=== PATIENT | female | born 1945 | race African-American/Black ===

== ENCOUNTER 2020-09-13 10:59 | Inpatient (IN) | payer OTHER ==
[2020-09-13 11:07] VITALS: BMI 25.8
[2020-09-13 12:06] LABS: BASO % 0.3 % (0-2.0); EOS % 0.9 % (0-4.5); HEMATOCRIT 32.1 % (32.4-45.2); HEMOGLOBIN 10.5 GM/dL (10.7-15.3); LYMPH % 24.5 % (8-40); MCH 31.4 pg (25.7-33.7); MCHC 32.8 g/dl (32.0-36.0); MEAN CELL VOLUME 95.6 fl (80-96); MONO % 6.6 % (3.8-10.2); NEUT % 67.7 % (42.8-82.8); PLATELET COUNT 172 K/MM3 (134-434); RBC 3.35 M/mm3 (3.60-5.2); RDW 16.3 % (11.6-15.6); WHITE BLOOD COUNT 5.5 K/mm3 (4.0-10.0)
[2020-09-13 12:11] LABS: INR 1.03 (0.83-1.09); PROTHROMBIN TIME (PATIENT) 12.4 SEC (9.7-13.0)
[2020-09-13 12:14] LABS: ACTIVATED PTT 34.5 SECONDS (25.2-36.5)
[2020-09-13 12:33] LABS: POTASSIUM 3.9 mmol/L (3.5-5.1)
[2020-09-13 12:35] LABS: CALCIUM 8.3 mg/dL (8.5-10.1)
[2020-09-13 12:36] LABS: ALBUMIN 2.9 g/dl (3.4-5.0); BLOOD UREA NITROGEN 25.1 mg/dL (7-18)
[2020-09-13 12:39] LABS: CREATININE 1.5 mg/dL (0.55-1.3)
[2020-09-13 12:40] LABS: BILIRUBIN,TOTAL 0.2 mg/dL (0.2-1); TOT PROT 5.9 g/dl (6.4-8.2)
[2020-09-13] MEDS: SODIUM CHLORIDE 1,000 ML IV SCH ×2 (12:43→22:54)
[2020-09-13] MEDS ORDERED: ASPIRIN 81 MG CHEWABLE TABLETS PO ONE (13:13)
[2020-09-13] MEDS ORDERED: ASPIRIN 81 MG CHEWABLE TABLETS ONE (14:29)
[2020-09-13 15:29] LABS: URINE APPEARANCE Clear; URINE BILIRUBIN 1+ (NEGATIVE); URINE COLOR Yellow; URINE GLUCOSE (UA) Negative (NEGATIVE); URINE KETONE Trace (NEGATIVE); URINE LEUK ESTERASE 1+ (NEGATIVE); URINE NITRITE Negative (NEGATIVE); URINE PROTEIN 2+ (NEGATIVE); URINE UROBILINOGEN 0.2 mg/dL (0.2-1.0)
[2020-09-13 15:50] LABS: EPI CELLS 50.6 /uL (0-25.1); HYALINE CASTS 16.69 /uL (0-3.1); URINE BACTERIA 91.7 /uL (0-1359); URINE RBC 64.6 /uL (0-23.9); URINE WBC 404.9 /uL (0-25.8)
[2020-09-13 15:51] LABS: URINE CRYSTALS FEW /hpf; YEAST NONE SEEN (NEGATIVE)
[2020-09-13] MEDS: INSULIN SLIDING SCALE (NOVOLOG) 1 VIAL SQ SCH ×2 (18:58→22:47)
[2020-09-13] MEDS ORDERED: DEXTROSE 50%-WATER - 25 GM/50 ML VIAL IVPUSH PRN (22:49)
[2020-09-13] MEDS ORDERED: DEXTROSE 50%-WATER 25 GM/50 ML DISP.SYRIN ONE (22:53)
[2020-09-13] MEDS: ROSUVASTATIN CA 20 MG TABLET (FP) PO SCH (22:55)
[2020-09-14] MEDS ORDERED: HEPARIN NA (PORCINE) 5,000 UNITS/ML 1ML VIAL SQ SCH (06:00)
[2020-09-14] MEDS ORDERED: DEXTROSE 50%-WATER - 25 GM/50 ML VIAL IVPUSH PRN (06:21)
[2020-09-14] MEDS ORDERED: DEXTROSE 50%-WATER 25 GM/50 ML DISP.SYRIN ONE (06:38)
[2020-09-14] MEDS: INSULIN SLIDING SCALE (NOVOLOG) 1 VIAL SQ SCH ×4 (06:40→22:01)
[2020-09-14] MEDS: LEVOTHYROXINE NA 50 MCG TABLET (FP) PO SCH (06:40)
[2020-09-14 08:22] LABS: BASO % 0.2 % (0-2.0); EOS % 0.4 % (0-4.5); HEMATOCRIT 33.6 % (32.4-45.2); HEMOGLOBIN 11.2 GM/dL (10.7-15.3); LYMPH % 24.6 % (8-40); MCH 31.8 pg (25.7-33.7); MCHC 33.3 g/dl (32.0-36.0); MEAN CELL VOLUME 95.3 fl (80-96); MEAN PLT VOLUME 9.5 fl (7.5-11.1); MONO % 6.8 % (3.8-10.2); PLATELET COUNT 172 K/MM3 (134-434); RBC 3.53 M/mm3 (3.60-5.2); RDW 16.1 % (11.6-15.6); WHITE BLOOD COUNT 6.5 K/mm3 (4.0-10.0)
[2020-09-14 08:37] LABS: POTASSIUM 3.6 mmol/L (3.5-5.1)
[2020-09-14 08:39] LABS: CHOLESTEROL 75 mg/dL (50-200); TRIGLYCERIDES 96 mg/dL (0-150)
[2020-09-14 08:40] LABS: LDL CHOLESTEROL (ONLY SJRH) 24 mg/dL (5-100)
[2020-09-14 08:41] LABS: CALCIUM 8.9 mg/dL (8.5-10.1)
[2020-09-14 08:42] LABS: ALBUMIN 3.1 g/dl (3.4-5.0); HDL CHOLESTEROL 47 mg/dL (40-60)
[2020-09-14 08:43] LABS: BLOOD UREA NITROGEN 19.7 mg/dL (7-18)
[2020-09-14 08:44] LABS: CREATININE 1.2 mg/dL (0.55-1.3)
[2020-09-14 08:45] LABS: PHOSPHOROUS 3.4 mg/dL (2.5-4.9)
[2020-09-14 08:46] LABS: BILIRUBIN,TOTAL 0.4 mg/dL (0.2-1); TOT PROT 5.9 g/dl (6.4-8.2)
[2020-09-14] MEDS ORDERED: PT OWN MED DRAWER 7, Y5N ONE ×2 (09:02→09:48)
[2020-09-14] MEDS: predniSONE 5 MG TABLET (UD) PO SCH (09:46)
[2020-09-14] MEDS: ASCORBIC ACID 500 MG TABLET (FP) PO SCH ×2 (09:46→22:02)
[2020-09-14] MEDS: ENOXAPARIN NA (PORCINE) 40 MG/0.4 ML DISP.SYRIN SQ SCH (09:46)
[2020-09-14] MEDS: ASPIRIN COATED 81 MG TABLET.EC PO SCH (09:46)
[2020-09-14] MEDS: ZINC SULFATE 220 MG TABLET PO SCH (09:47)
[2020-09-14] MEDS: CHOLECALCIFEROL (VIT D3) 1,000 UNIT (25 MCG) TABLET PO SCH (09:47)
[2020-09-14] MEDS ORDERED: AMBRISENTAN 10 MG PO SCH (10:00)
[2020-09-14] MEDS ORDERED: ACETAMINOPHEN 325 MG TABLET (FP) PO PRN (11:14)
[2020-09-14] MEDS: azaTHIOprine 50 MG TABLET PO SCH (11:32)
[2020-09-14] MEDS: SODIUM CHLORIDE 1,000 ML IV SCH (12:59)
[2020-09-14] MEDS ORDERED: BAMLANIVIMAB 700 MG in SODIUM CHLORIDE 250 ML IVPB ONE (16:45)
[2020-09-14] MEDS: ROSUVASTATIN CA 20 MG TABLET (FP) PO SCH (22:03)
[2020-09-15] MEDS: LEVOTHYROXINE NA 50 MCG TABLET (FP) PO SCH (06:10)
[2020-09-15 07:59] VITALS: BP 153/69; PULSE 85; TEMP 98.1
[2020-09-15] MEDS: INSULIN SLIDING SCALE (NOVOLOG) 1 VIAL SQ SCH (08:33)
[2020-09-15] MEDS ORDERED: PT OWN MED DRAWER 7, Y5N ONE (10:33)
[2020-09-15] MEDS: ASCORBIC ACID 500 MG TABLET (FP) PO SCH (10:40)
[2020-09-15] MEDS: predniSONE 5 MG TABLET (UD) PO SCH (10:40)
[2020-09-15] MEDS: ASPIRIN COATED 81 MG TABLET.EC PO SCH (10:40)
[2020-09-15] MEDS: ENOXAPARIN NA (PORCINE) 40 MG/0.4 ML DISP.SYRIN SQ SCH (10:40)
[2020-09-15] MEDS: CHOLECALCIFEROL (VIT D3) 1,000 UNIT (25 MCG) TABLET PO SCH (10:40)
[2020-09-15] MEDS: ZINC SULFATE 220 MG TABLET PO SCH (10:41)
[2020-09-15] MEDS: azaTHIOprine 50 MG TABLET PO SCH (10:41)
== END 2020-09-15 11:00 | disposition home or self-care (01) | DRG 178 ==
LOC: JER 10:59 → JERBED 14:23 → J4S 21:03
PROVIDERS: ADMIT Internal Medicine; ATTEND Nurse Practitioner Acute Care
PROC: 3E0330M Introduction of Antineoplastic, Monoclonal Antibody, into Peripheral Vein, Percutaneous Approach (ICD-10-PCS; principal; 2020-09-14)
DX: U07.1 COVID-19 (principal); G81.94 Hemiplegia, unspecified affecting left nondominant side; I12.9 Hypertensive chronic kidney disease with stage 1 through stage 4 chronic kidney disease, or unspecified chronic kidney disease; E11.22 Type 2 diabetes mellitus with diabetic chronic kidney disease; N18.30 Chronic kidney disease, stage 3 unspecified; I25.10 Atherosclerotic heart disease of native coronary artery without angina pectoris; E78.5 Hyperlipidemia, unspecified; I27.20 Pulmonary hypertension, unspecified; M34.9 Systemic sclerosis, unspecified; M32.9 Systemic lupus erythematosus, unspecified; R74.01 Elevation of levels of liver transaminase levels; R77.8 Other specified abnormalities of plasma proteins; Z79.84 Long term (current) use of oral hypoglycemic drugs
CPT/HCPCS: 36415; 70450-TC; 70551-TC; 71045-TC-FY; 80053; 80061; 81003; 82550; 82728; 82962; 83615; 83721; 83735; 84100; 84484; 85025; 85610; 85730; 86140; 86850; 86900; 86901; 93005; 93010; 97116-GP; 97161-GP; 99285-25; C9803; M0239; Q0239; U0003

== ENCOUNTER 2022-02-02 18:25 | Observation (INO) | payer OTHER ==
[2022-02-02 18:44] VITALS: BMI 23.5
[2022-02-02] MEDS ORDERED: ASPIRIN 81 MG CHEWABLE TABLETS PO ONE (18:52)
[2022-02-02 19:38] LABS: BASO % 0.3 % (0-2.0); EOS % 0.3 % (0-4.5); HEMATOCRIT 34.7 % (32.4-45.2); HEMOGLOBIN 11.5 GM/dL (10.7-15.3); LYMPH % 17.1 % (8-40); MCH 31.4 pg (25.7-33.7); MCHC 33.2 g/dl (32.0-36.0); MEAN CELL VOLUME 94.6 fl (80-96); MEAN PLT VOLUME 9.1 fl (7.5-11.1); MONO % 4.3 % (3.8-10.2); PLATELET COUNT 209 10^3/uL (134-434); RBC 3.67 M/mm3 (3.60-5.2); RDW 17.8 % (11.6-15.6); WHITE BLOOD COUNT 5.5 K/mm3 (4.0-10.0)
[2022-02-02 19:51] LABS: INR 0.92 (0.83-1.09); PROTHROMBIN TIME (PATIENT) 10.6 SEC (9.7-13.0)
[2022-02-02 19:54] LABS: ACTIVATED PTT 30.9 SECONDS (25.2-36.5)
[2022-02-02] MEDS: SODIUM CHLORIDE 1,000 ML IV SCH (20:03)
[2022-02-02] MEDS ORDERED: ASPIRIN 81 MG CHEWABLE TABLETS ONE (20:04)
[2022-02-02 20:11] LABS: BLOOD UREA NITROGEN 48.8 mg/dL (7-18); CREATININE 2.3 mg/dL (0.55-1.3)
[2022-02-02 20:13] LABS: BILIRUBIN,TOTAL 0.4 mg/dL (0.2-1); TOT PROT 5.9 g/dl (6.4-8.2)
[2022-02-02] MEDS ORDERED: SODIUM CHLORIDE 0.9% 500 ML INFUS.BAG IV ONE (22:21)
[2022-02-02 22:50] LABS: EPI CELLS 21 /uL (0-25.1); HYALINE CASTS 4 /uL (0-3.1); URINE APPEARANCE CLOUDY; URINE BACTERIA 147 /uL (0-1359); URINE BILIRUBIN NEGATIVE (NEGATIVE); URINE COLOR YELLOW; URINE GLUCOSE (UA) NEGATIVE (NEGATIVE); URINE KETONE NEGATIVE (NEGATIVE); URINE LEUK ESTERASE 1+ (NEGATIVE); URINE NITRITE NEGATIVE (NEGATIVE); URINE PROTEIN 1+ (NEGATIVE); URINE UROBILINOGEN 0.2 mg/dL (0.2-1.0); URINE WBC 48 /uL (0-25.8)
[2022-02-02 23:14] LABS: URINE RBC 20 /uL (0-23.9)
[2022-02-03] MEDS ORDERED: FUROSEMIDE 40 MG TABLET (FP) PO PRN (05:02)
[2022-02-03] MEDS: LEVOTHYROXINE NA 50 MCG TABLET (FP) PO SCH (06:07)
[2022-02-03] MEDS: HEPARIN NA (PORCINE) 5,000 UNITS/ML 1ML VIAL SQ SCH ×3 (06:07→21:10)
[2022-02-03] MEDS: INSULIN SLIDING SCALE (NOVOLOG) 1 VIAL SQ SCH ×4 (06:13→21:23)
[2022-02-03] MEDS ORDERED: DEXTROSE 50%-WATER - 25 GM/50 ML VIAL IVPUSH ONE (06:17)
[2022-02-03] MEDS ORDERED: DEXTROSE 50%-WATER 25 GM/50 ML DISP.SYRIN IVPUSH ONE (06:17)
[2022-02-03] MEDS ORDERED: DEXTROSE 50%-WATER 25 GM/50 ML DISP.SYRIN ONE (06:19)
[2022-02-03 07:45] LABS: BASO % 0.3 % (0-2.0); EOS % 0.1 % (0-4.5); HEMATOCRIT 36.7 % (32.4-45.2); HEMOGLOBIN 12.4 GM/dL (10.7-15.3); LYMPH % 32.3 % (8-40); MCH 31.6 pg (25.7-33.7); MCHC 33.8 g/dl (32.0-36.0); MEAN CELL VOLUME 93.7 fl (80-96); MEAN PLT VOLUME 9.3 fl (7.5-11.1); MONO % 5.7 % (3.8-10.2); NEUT % 61.6 % (42.8-82.8); PLATELET COUNT 221 10^3/uL (134-434); RBC 3.92 M/mm3 (3.60-5.2); RDW 17.4 % (11.6-15.6); WHITE BLOOD COUNT 4.6 K/mm3 (4.0-10.0)
[2022-02-03 08:10] LABS: BLOOD UREA NITROGEN 44.3 mg/dL (7-18)
[2022-02-03 08:11] LABS: CALCIUM 8.9 mg/dL (8.5-10.1)
[2022-02-03] MEDS ORDERED: cefTRIAXone SODIUM 1 GM VIAL ONE (09:13)
[2022-02-03] MEDS ORDERED: DEXTROSE 5%-WATER - 50 ML IVPB ONE (09:14)
[2022-02-03] MEDS: cloNIDine HCL 0.1 MG TABLET PO SCH ×2 (09:41→21:12)
[2022-02-03] MEDS: azaTHIOprine 50 MG TABLET PO SCH (09:41)
[2022-02-03] MEDS: CEFTRIAXONE 1 GM in DEXTROSE 5%-WATER - 50 ML IVPB SCH (09:42)
[2022-02-03] MEDS: ASPIRIN 81 MG CHEWABLE TABLETS PO SCH (09:42)
[2022-02-03] MEDS: PANTOPRAZOLE 40 MG TABLET PO SCH (09:42)
[2022-02-03] MEDS ORDERED: PATIENT'S OWN MEDICATION (NON-FORMULARY) (Tadalafil [Tadalafil] 20 MG Tablet) PO SCH (10:00)
[2022-02-03] MEDS ORDERED: predniSONE 5 MG TABLET (UD) PO SCH (10:00)
[2022-02-03] MEDS ORDERED: VALSARTAN 160 MG TABLET PO SCH (10:00)
[2022-02-03] MEDS ORDERED: AMBRISENTAN 10 MG PO SCH (10:00)
[2022-02-03] MEDS: SODIUM CHLORIDE 1,000 ML IV SCH (21:10)
[2022-02-03] MEDS: ROSUVASTATIN CA 10 MG TABLET PO SCH (21:11)
[2022-02-04] MEDS ORDERED: SODIUM CHLORIDE 100 ML IV STA (05:48)
[2022-02-04] MEDS: HEPARIN NA (PORCINE) 5,000 UNITS/ML 1ML VIAL SQ SCH ×3 (06:13→21:45)
[2022-02-04] MEDS: LEVOTHYROXINE NA 50 MCG TABLET (FP) PO SCH (06:13)
[2022-02-04] MEDS: INSULIN SLIDING SCALE (NOVOLOG) 1 VIAL SQ SCH ×4 (06:17→21:53)
[2022-02-04 08:09] LABS: BASO % 0.3 % (0-2.0); EOS % 0.3 % (0-4.5); HEMATOCRIT 29.6 % (32.4-45.2); HEMOGLOBIN 10.1 GM/dL (10.7-15.3); LYMPH % 41.9 % (8-40); MCH 32.4 pg (25.7-33.7); MCHC 34.1 g/dl (32.0-36.0); MEAN CELL VOLUME 94.9 fl (80-96); MONO % 8.7 % (3.8-10.2); NEUT % 48.8 % (42.8-82.8); PLATELET COUNT 179 10^3/uL (134-434); RBC 3.12 M/mm3 (3.60-5.2); RDW 17.5 % (11.6-15.6); WHITE BLOOD COUNT 4.5 K/mm3 (4.0-10.0)
[2022-02-04 08:28] LABS: BLOOD UREA NITROGEN 43.5 mg/dL (7-18); CALCIUM 8.3 mg/dL (8.5-10.1)
[2022-02-04 08:29] LABS: MAGNESIUM 1.1 mg/dL (1.8-2.4)
[2022-02-04 08:30] LABS: CREATININE 2.1 mg/dL (0.55-1.3)
[2022-02-04 08:32] LABS: BILIRUBIN,TOTAL 0.3 mg/dL (0.2-1); TOT PROT 4.7 g/dl (6.4-8.2)
[2022-02-04 08:36] LABS: ALBUMIN 2.4 g/dl (3.4-5.0)
[2022-02-04] MEDS ORDERED: cefTRIAXone SODIUM 1 GM VIAL ONE (09:41)
[2022-02-04] MEDS ORDERED: DEXTROSE 5%-WATER - 50 ML IVPB ONE (09:41)
[2022-02-04] MEDS ORDERED: predniSONE 20 MG TABLET (UD) PO SCH (10:00)
[2022-02-04] MEDS: CEFTRIAXONE 1 GM in DEXTROSE 5%-WATER - 50 ML IVPB SCH (10:14)
[2022-02-04] MEDS: ASPIRIN 81 MG CHEWABLE TABLETS PO SCH (10:16)
[2022-02-04] MEDS: azaTHIOprine 50 MG TABLET PO SCH (10:16)
[2022-02-04] MEDS: PANTOPRAZOLE 40 MG TABLET PO SCH (10:17)
[2022-02-04] MEDS: predniSONE 20 MG TABLET (UD) PO SCH (10:17)
[2022-02-04] MEDS: VALSARTAN 160 MG TABLET PO SCH (10:18)
[2022-02-04] MEDS: cloNIDine HCL 0.1 MG TABLET PO SCH (21:45)
[2022-02-04] MEDS: ROSUVASTATIN CA 10 MG TABLET PO SCH (21:45)
[2022-02-05] MEDS: HEPARIN NA (PORCINE) 5,000 UNITS/ML 1ML VIAL SQ SCH ×3 (06:02→21:57)
[2022-02-05] MEDS: INSULIN SLIDING SCALE (NOVOLOG) 1 VIAL SQ SCH ×4 (06:11→22:16)
[2022-02-05] MEDS: LEVOTHYROXINE NA 50 MCG TABLET (FP) PO SCH (06:20)
[2022-02-05 08:02] LABS: BASO % 0.1 % (0-2.0); HEMATOCRIT 34.8 % (32.4-45.2); HEMOGLOBIN 11.8 GM/dL (10.7-15.3); LYMPH % 21.4 % (8-40); MCH 32.1 pg (25.7-33.7); MCHC 33.8 g/dl (32.0-36.0); MEAN CELL VOLUME 94.8 fl (80-96); MEAN PLT VOLUME 9.4 fl (7.5-11.1); MONO % 4.9 % (3.8-10.2); NEUT % 73.6 % (42.8-82.8); PLATELET COUNT 252 10^3/uL (134-434); RBC 3.67 M/mm3 (3.60-5.2); RDW 17.9 % (11.6-15.6); WHITE BLOOD COUNT 4.6 K/mm3 (4.0-10.0)
[2022-02-05 08:14] LABS: CALCIUM 7.9 mg/dL (8.5-10.1)
[2022-02-05 08:15] LABS: ALBUMIN 2.5 g/dl (3.4-5.0); BLOOD UREA NITROGEN 50.6 mg/dL (7-18); MAGNESIUM 1.1 mg/dL (1.8-2.4)
[2022-02-05 08:18] LABS: CREATININE 2.4 mg/dL (0.55-1.3)
[2022-02-05 08:20] LABS: BILIRUBIN,TOTAL 0.2 mg/dL (0.2-1); TOT PROT 5.3 g/dl (6.4-8.2)
[2022-02-05] MEDS ORDERED: cefTRIAXone SODIUM 1 GM VIAL ONE (09:38)
[2022-02-05] MEDS ORDERED: MAGNESIUM OXIDE 400 MG TABLET (FP) PO ONE ×2 (09:52→22:00)
[2022-02-05] MEDS ORDERED: MAGNESIUM 2GM/50ML STERILE WATER IVPB IVPB ONE (10:00)
[2022-02-05] MEDS: CEFTRIAXONE 1 GM in DEXTROSE 5%-WATER - 50 ML IVPB SCH (10:10)
[2022-02-05] MEDS: PANTOPRAZOLE 40 MG TABLET PO SCH (10:12)
[2022-02-05] MEDS: VALSARTAN 160 MG TABLET PO SCH (10:12)
[2022-02-05] MEDS: ASPIRIN 81 MG CHEWABLE TABLETS PO SCH (10:12)
[2022-02-05] MEDS: cloNIDine HCL 0.1 MG TABLET PO SCH ×2 (10:12→21:57)
[2022-02-05] MEDS: predniSONE 20 MG TABLET (UD) PO SCH (10:12)
[2022-02-05] MEDS: azaTHIOprine 50 MG TABLET PO SCH (10:13)
[2022-02-05] MEDS: CEPHALEXIN MONOHYDRATE 250 MG CAPSULE (FP) PO SCH ×2 (15:19→21:58)
[2022-02-05] MEDS: ROSUVASTATIN CA 10 MG TABLET PO SCH (21:56)
[2022-02-05 22:51] LABS: EPI CELLS 15 /uL (0-25.1); HYALINE CASTS 3 /uL (0-3.1); PH,URINE 5.5 (5.0-8.0); URINE APPEARANCE CLEAR; URINE BACTERIA 3 /uL (0-1359); URINE BILIRUBIN NEGATIVE (NEGATIVE); URINE COLOR YELLOW; URINE GLUCOSE (UA) NEGATIVE (NEGATIVE); URINE KETONE NEGATIVE (NEGATIVE); URINE LEUK ESTERASE NEGATIVE (NEGATIVE); URINE NITRITE NEGATIVE (NEGATIVE); URINE PROTEIN 2+ (NEGATIVE); URINE RBC 26 /uL (0-23.9); URINE UROBILINOGEN 0.2 mg/dL (0.2-1.0); URINE WBC 40 /uL (0-25.8)
[2022-02-06] MEDS: LEVOTHYROXINE NA 50 MCG TABLET (FP) PO SCH (06:37)
[2022-02-06] MEDS: HEPARIN NA (PORCINE) 5,000 UNITS/ML 1ML VIAL SQ SCH ×2 (06:37→13:59)
[2022-02-06] MEDS: INSULIN SLIDING SCALE (NOVOLOG) 1 VIAL SQ SCH ×3 (06:38→16:10)
[2022-02-06 06:51] LABS: BASO % 0.2 % (0-2.0); HEMATOCRIT 33.1 % (32.4-45.2); HEMOGLOBIN 11.2 GM/dL (10.7-15.3); LYMPH % 20.7 % (8-40); MCHC 33.9 g/dl (32.0-36.0); MEAN CELL VOLUME 94.4 fl (80-96); MEAN PLT VOLUME 8.5 fl (7.5-11.1); MONO % 7.1 % (3.8-10.2); PLATELET COUNT 235 10^3/uL (134-434); RBC 3.51 M/mm3 (3.60-5.2); RDW 18.4 % (11.6-15.6); WHITE BLOOD COUNT 5.2 K/mm3 (4.0-10.0)
[2022-02-06 07:15] LABS: CALCIUM 7.9 mg/dL (8.5-10.1)
[2022-02-06 07:16] LABS: ALBUMIN 2.5 g/dl (3.4-5.0); BLOOD UREA NITROGEN 51.7 mg/dL (7-18); MAGNESIUM 1.2 mg/dL (1.8-2.4)
[2022-02-06 07:19] LABS: CREATININE 2.4 mg/dL (0.55-1.3)
[2022-02-06 07:20] LABS: TOT PROT 5.2 g/dl (6.4-8.2)
[2022-02-06 07:21] LABS: BILIRUBIN,TOTAL 0.2 mg/dL (0.2-1)
[2022-02-06] MEDS: VALSARTAN 160 MG TABLET PO SCH (09:26)
[2022-02-06] MEDS: PANTOPRAZOLE 40 MG TABLET PO SCH (09:26)
[2022-02-06] MEDS: CEPHALEXIN MONOHYDRATE 250 MG CAPSULE (FP) PO SCH (09:26)
[2022-02-06] MEDS: cloNIDine HCL 0.1 MG TABLET PO SCH (09:26)
[2022-02-06] MEDS: azaTHIOprine 50 MG TABLET PO SCH (09:26)
[2022-02-06] MEDS: ASPIRIN 81 MG CHEWABLE TABLETS PO SCH (09:26)
[2022-02-06] MEDS ORDERED: predniSONE 20 MG TABLET (UD) PO SCH (10:00)
[2022-02-06 15:15] VITALS: BP 142/59; PULSE 68; TEMP 98.6
[2022-02-08] MEDS ORDERED: predniSONE 20 MG TABLET (UD) PO SCH (10:00)
[2022-02-08 12:07] LABS: DRVVT - 30.8 sec (0.0-47.0)
[2022-02-10] MEDS ORDERED: predniSONE 10 MG TABLET (UD) PO SCH (10:00)
[2022-02-12] MEDS ORDERED: predniSONE 5 MG TABLET (UD) PO SCH (10:00)
== END 2022-02-06 17:23 | disposition home health service (06) ==
LOC: JER 18:25 → INTOOBSV 21:06 → JERBED 21:06 → UNDOADMOB 21:06 → JERBED 23:42 → J4W 02-03 01:45
PROVIDERS: ADMIT Internal Medicine; ATTEND Nurse Practitioner Family
PROC: 3E03329 Introduction of Other Anti-infective into Peripheral Vein, Percutaneous Approach (ICD-10-PCS; principal; 2022-02-02)
PROC: 3E0337Z Introduction of Electrolytic and Water Balance Substance into Peripheral Vein, Percutaneous Approach (ICD-10-PCS; 2022-02-02)
PROC: 3E023GC Introduction of Other Therapeutic Substance into Muscle, Percutaneous Approach (ICD-10-PCS; 2022-02-02)
DX: M32.9 Systemic lupus erythematosus, unspecified (principal); N39.0 Urinary tract infection, site not specified; R77.8 Other specified abnormalities of plasma proteins; I12.9 Hypertensive chronic kidney disease with stage 1 through stage 4 chronic kidney disease, or unspecified chronic kidney disease; I69.354 Hemiplegia and hemiparesis following cerebral infarction affecting left non-dominant side; E78.00 Pure hypercholesterolemia, unspecified; I27.20 Pulmonary hypertension, unspecified; E03.9 Hypothyroidism, unspecified; J45.909 Unspecified asthma, uncomplicated; E11.9 Type 2 diabetes mellitus without complications; G45.9 Transient cerebral ischemic attack, unspecified; N17.9 Acute kidney failure, unspecified; Z86.16 Personal history of COVID-19; B02.9 Zoster without complications; E11.22 Type 2 diabetes mellitus with diabetic chronic kidney disease; N18.9 Chronic kidney disease, unspecified
CPT/HCPCS: 0241U-QW; 36415; 70450-TC; 70496-TC; 70498-TC; 70551-TC; 71045-TC-FY; 72128-TC; 72131-TC; 76775-TC; 80048; 80053; 80061; 81003; 82550; 82962; 83036; 83605; 83735; 84436; 84443; 84480; 84484; 85025; 85610; 85613; 85651; 85730; 85732; 86038; 86160; 86225; 86850; 86900; 86901; 87086; 93005; 93010; 93306-TC; 93880-TC; 96361; 96365; 96368; 96372; 97116-GP; 97162-GP; 99285-25; G0378; J0735; J1644

== ENCOUNTER 2022-05-11 19:02 | Inpatient (IN) | payer OTHER ==
[2022-05-11] MEDS ORDERED: DIPHTH,PERTUSS(ACELL),TET 0.5 ML DISP.SYRIN IM ONE ×2 (20:03→20:48)
[2022-05-11 21:06] LABS: BASO % 0.3 % (0-2.0); HEMATOCRIT 38.4 % (32.4-45.2); HEMOGLOBIN 12.2 GM/dL (10.7-15.3); LYMPH % 16.3 % (8-40); MCHC 31.7 g/dl (32.0-36.0); MEAN CELL VOLUME 97.9 fl (80-96); MEAN PLT VOLUME 10.3 fl (7.5-11.1); MONO % 8.5 % (3.8-10.2); NEUT % 74.9 % (42.8-82.8); PLATELET COUNT 143 10^3/uL (134-434); RBC 3.92 M/mm3 (3.60-5.2); RDW 14.9 % (11.6-15.6); WHITE BLOOD COUNT 6.7 K/mm3 (4.0-10.0)
[2022-05-11 21:42] LABS: BLOOD UREA NITROGEN 37.6 mg/dL (7-18); CALCIUM 8.9 mg/dL (8.5-10.1)
[2022-05-11 21:45] LABS: CREATININE 2.7 mg/dL (0.55-1.3)
[2022-05-11 21:48] LABS: BILIRUBIN,TOTAL 0.4 mg/dL (0.2-1); TOT PROT 5.9 g/dl (6.4-8.2)
[2022-05-11] MEDS ORDERED: SODIUM CHLORIDE 0.9% 500 ML INFUS.BAG IV ONE (22:02)
[2022-05-11] MEDS ORDERED: MAGNESIUM SULF 50% (8.12 MEQ/2 ML-1 GM VIAL) IVPB ONE (22:15)
[2022-05-11] MEDS ORDERED: SODIUM CHLORIDE 0.9% 1000 ML INFUS.BAG IV ONE (22:16)
[2022-05-11] MEDS ORDERED: MAGNESIUM 1GM/D5W - 1 GM/100 ML IVPB IVPB ONE (22:19)
[2022-05-12] MEDS ORDERED: SODIUM CHLORIDE 1,000 ML IV SCH ×2 (03:15→07:54)
[2022-05-12 07:32] LABS: CHLORIDE 108 mmol/L (98-107); SODIUM 143 mmol/L (136-145)
[2022-05-12 07:34] LABS: ALBUMIN 2.6 g/dl (3.4-5.0); ANION GAP 11 MMOL/L (8-16); BLOOD UREA NITROGEN 40.7 mg/dL (7-18); CALCIUM 8.3 mg/dL (8.5-10.1); CO2 24 mmol/L (21-32); MAGNESIUM 1.6 mg/dL (1.8-2.4)
[2022-05-12 07:36] LABS: GLUCOSE,RANDOM 71 mg/dL (74-106)
[2022-05-12 07:37] LABS: CREATININE 2.8 mg/dL (0.55-1.3); PHOSPHOROUS 4.7 mg/dL (2.5-4.9); SGPT/ALT 37 U/L (13-61)
[2022-05-12 07:39] LABS: BILIRUBIN,TOTAL 0.3 mg/dL (0.2-1); SGOT/AST 132 U/L (15-37); TOT PROT 5.2 g/dl (6.4-8.2)
[2022-05-12 07:41] LABS: ALK PHOS 50 U/L (45-117)
[2022-05-12] MEDS: INSULIN SLIDING SCALE (NOVOLOG) 1 VIAL SQ SCH ×4 (07:56→22:55)
[2022-05-12 07:59] LABS: BASO % 0.2 % (0-2.0); HEMATOCRIT 32.3 % (32.4-45.2); HEMOGLOBIN 10.7 GM/dL (10.7-15.3); LYMPH % 24.8 % (8-40); MCH 31.8 pg (25.7-33.7); MCHC 33.1 g/dl (32.0-36.0); MEAN CELL VOLUME 96.1 fl (80-96); MEAN PLT VOLUME 9.7 fl (7.5-11.1); MONO % 8.2 % (3.8-10.2); NEUT % 66.8 % (42.8-82.8); PLATELET COUNT 131 10^3/uL (134-434); RBC 3.36 M/mm3 (3.60-5.2); RDW 14.9 % (11.6-15.6); WHITE BLOOD COUNT 5.8 K/mm3 (4.0-10.0)
[2022-05-12] MEDS ORDERED: azaTHIOprine 50 MG TABLET PO SCH (08:00)
[2022-05-12] MEDS ORDERED: LEVOTHYROXINE NA 50 MCG TABLET (FP) ONE (08:21)
[2022-05-12] MEDS: LEVOTHYROXINE NA 50 MCG TABLET (FP) PO SCH (08:26)
[2022-05-12] MEDS ORDERED: ZINC SULFATE 220 MG CAPSULE (FP) ONE (09:19)
[2022-05-12] MEDS ORDERED: ASCORBIC ACID 500 MG TABLET (FP) ONE (09:20)
[2022-05-12] MEDS ORDERED: HEPARIN NA (PORCINE) 5,000 UNITS/ML 1ML VIAL ONE (09:21)
[2022-05-12] MEDS ORDERED: POTASSIUM CHLORIDE 10 MEQ in SODIUM CHLORIDE 1,000 ML IVPB SCH (09:30)
[2022-05-12] MEDS ORDERED: MAGNESIUM 1GM/D5W 100ML - 100 ML IVPB IVPB ONE (09:41)
[2022-05-12] MEDS ORDERED: MAGNESIUM 1GM/D5W - 1 GM/100 ML IVPB IVPB ONE (09:54)
[2022-05-12] MEDS: azaTHIOprine 50 MG TABLET PO SCH (10:10)
[2022-05-12] MEDS: ZINC SULFATE 220 MG CAPSULE (FP) PO SCH (10:10)
[2022-05-12] MEDS: HEPARIN NA (PORCINE) 5,000 UNITS/ML 1ML VIAL SQ SCH ×2 (10:10→22:56)
[2022-05-12] MEDS: predniSONE 5 MG TABLET (UD) PO SCH (10:10)
[2022-05-12] MEDS: ASCORBIC ACID 250 MG TABLET (FP) PO SCH (10:10)
[2022-05-12] MEDS ORDERED: ACETAMINOPHEN 1000 MG/100 ML BAG IVPB PRN ×2 (15:31→15:37)
[2022-05-12] MEDS ORDERED: ACETAMINOPHEN INJECTION 100 ML IVPB ONE (15:37)
[2022-05-12 16:52] LABS: CHLORIDE 109 mmol/L (98-107); SODIUM 143 mmol/L (136-145)
[2022-05-12 16:54] LABS: BLOOD UREA NITROGEN 42.1 mg/dL (7-18); CALCIUM 8.4 mg/dL (8.5-10.1); CO2 20 mmol/L (21-32); GLUCOSE,RANDOM 85 mg/dL (74-106)
[2022-05-12 16:59] LABS: ANION GAP 14 MMOL/L (8-16); CREATININE 2.7 mg/dL (0.55-1.3)
[2022-05-12] MEDS ORDERED: POTASSIUM CHLORIDE 20 MEQ PREMIX IVPB 100 ML IVPB ONE (17:09)
[2022-05-12] MEDS ORDERED: KCL 10 MEQ IVPB 10 MEQ/100 ML INFUS.BAG IVPB ONE (17:14)
[2022-05-12] MEDS ORDERED: BENZOCAINE/MENTH/CETYLPYRD CL 1 EACH LOZENGE MM ONE (17:20)
[2022-05-12] MEDS: BENZOCAINE/MENTHOL 1 EACH LOZENGE MM PRN (17:20)
[2022-05-12] MEDS ORDERED: POTASSIUM CHLORIDE 10 MEQ PREMIX IVPB (POTASSIUM RIDER) IVPB SCH (17:28)
[2022-05-13] MEDS: BENZOCAINE/MENTHOL 1 EACH LOZENGE MM PRN ×2 (05:25→11:53)
[2022-05-13] MEDS: LEVOTHYROXINE NA 50 MCG TABLET (FP) PO SCH (06:03)
[2022-05-13] MEDS: INSULIN SLIDING SCALE (NOVOLOG) 1 VIAL SQ SCH ×4 (06:13→21:40)
[2022-05-13] MEDS ORDERED: POTASSIUM CHLORIDE TABS 20 MEQ TABLET.ER (FP) PO ONE ×2 (07:14→10:00)
[2022-05-13 08:22] LABS: BLOOD UREA NITROGEN 45.2 mg/dL (7-18); CALCIUM 8.4 mg/dL (8.5-10.1)
[2022-05-13 08:24] LABS: MAGNESIUM 1.9 mg/dL (1.8-2.4)
[2022-05-13 08:25] LABS: CREATININE 2.8 mg/dL (0.55-1.3)
[2022-05-13] MEDS: predniSONE 5 MG TABLET (UD) PO SCH (09:59)
[2022-05-13] MEDS: ASCORBIC ACID 250 MG TABLET (FP) PO SCH (09:59)
[2022-05-13] MEDS: HEPARIN NA (PORCINE) 5,000 UNITS/ML 1ML VIAL SQ SCH ×2 (09:59→21:39)
[2022-05-13] MEDS: ZINC SULFATE 220 MG CAPSULE (FP) PO SCH (09:59)
[2022-05-13] MEDS: azaTHIOprine 50 MG TABLET PO SCH (09:59)
[2022-05-13] MEDS: metoPROLOL SUCCINATE 25 MG TAB.SR.24H (FP) PO SCH (11:49)
[2022-05-13] MEDS: ASPIRIN COATED 81 MG TABLET.EC PO SCH (11:49)
[2022-05-13] MEDS ORDERED: ACETAMINOPHEN WITH CODEINE 300MG/30MG TABLET PO PRN (14:36)
[2022-05-13] MEDS: PATIENT'S OWN MEDICATION (NON-FORMULARY) (Tadalafil [Tadalafil] 20 MG Tablet) PO SCH (15:25)
[2022-05-13] MEDS: FERROUS SO4 325 MG TABLET (FP) PO SCH (17:12)
[2022-05-13] MEDS: guaiFENesin 600 MG TABLET.ER (FP) PO SCH (21:39)
[2022-05-13] MEDS ORDERED: PATIENT'S OWN MEDICATION (NON-FORMULARY) (Tadalafil [Tadalafil] 20 MG Tablet) PO SCH (22:00)
[2022-05-13] MEDS ORDERED: ROSUVASTATIN CA 20 MG TABLET PO SCH (22:00)
[2022-05-14] MEDS: INSULIN SLIDING SCALE (NOVOLOG) 1 VIAL SQ SCH ×4 (06:36→21:36)
[2022-05-14] MEDS: LEVOTHYROXINE NA 50 MCG TABLET (FP) PO SCH (06:38)
[2022-05-14] MEDS: FERROUS SO4 325 MG TABLET (FP) PO SCH ×2 (08:05→17:29)
[2022-05-14 08:12] LABS: CALCIUM 8.6 mg/dL (8.5-10.1)
[2022-05-14 08:13] LABS: BLOOD UREA NITROGEN 43.4 mg/dL (7-18)
[2022-05-14 08:17] LABS: CREATININE 2.6 mg/dL (0.55-1.3)
[2022-05-14] MEDS: HEPARIN NA (PORCINE) 5,000 UNITS/ML 1ML VIAL SQ SCH ×2 (09:33→21:21)
[2022-05-14] MEDS: PANTOPRAZOLE 40 MG TABLET PO SCH (09:34)
[2022-05-14] MEDS: ASPIRIN COATED 81 MG TABLET.EC PO SCH (09:34)
[2022-05-14] MEDS: ASCORBIC ACID 250 MG TABLET (FP) PO SCH (09:34)
[2022-05-14] MEDS: azaTHIOprine 50 MG TABLET PO SCH (09:34)
[2022-05-14] MEDS: metoPROLOL SUCCINATE 25 MG TAB.SR.24H (FP) PO SCH (09:34)
[2022-05-14] MEDS: predniSONE 5 MG TABLET (UD) PO SCH (09:34)
[2022-05-14] MEDS: ZINC SULFATE 220 MG CAPSULE (FP) PO SCH (09:34)
[2022-05-14] MEDS: guaiFENesin 600 MG TABLET.ER (FP) PO SCH ×2 (09:34→21:21)
[2022-05-14] MEDS: BENZOCAINE/MENTHOL 1 EACH LOZENGE MM PRN (09:39)
[2022-05-14] MEDS: SODIUM CHLORIDE 1,000 ML IV SCH (19:04)
[2022-05-15] MEDS: LEVOTHYROXINE NA 50 MCG TABLET (FP) PO SCH (06:25)
[2022-05-15] MEDS: INSULIN SLIDING SCALE (NOVOLOG) 1 VIAL SQ SCH ×4 (06:38→22:14)
[2022-05-15] MEDS: FERROUS SO4 325 MG TABLET (FP) PO SCH ×2 (07:57→16:55)
[2022-05-15 08:57] LABS: CALCIUM 8.5 mg/dL (8.5-10.1)
[2022-05-15 08:58] LABS: BLOOD UREA NITROGEN 38.1 mg/dL (7-18)
[2022-05-15 09:01] LABS: CREATININE 1.9 mg/dL (0.55-1.3)
[2022-05-15] MEDS: guaiFENesin 600 MG TABLET.ER (FP) PO SCH ×2 (09:24→22:14)
[2022-05-15] MEDS: PANTOPRAZOLE 40 MG TABLET PO SCH (09:24)
[2022-05-15] MEDS: predniSONE 5 MG TABLET (UD) PO SCH (09:24)
[2022-05-15] MEDS: ZINC SULFATE 220 MG CAPSULE (FP) PO SCH (09:24)
[2022-05-15] MEDS: ASCORBIC ACID 250 MG TABLET (FP) PO SCH (09:24)
[2022-05-15] MEDS: ASPIRIN COATED 81 MG TABLET.EC PO SCH (09:24)
[2022-05-15] MEDS: metoPROLOL SUCCINATE 25 MG TAB.SR.24H (FP) PO SCH (09:24)
[2022-05-15] MEDS: azaTHIOprine 50 MG TABLET PO SCH (09:25)
[2022-05-15] MEDS: SODIUM CHLORIDE 1,000 ML IV SCH ×2 (09:25→22:18)
[2022-05-15] MEDS: HEPARIN NA (PORCINE) 5,000 UNITS/ML 1ML VIAL SQ SCH ×2 (09:25→22:13)
[2022-05-16] MEDS: LEVOTHYROXINE NA 50 MCG TABLET (FP) PO SCH (06:39)
[2022-05-16] MEDS: INSULIN SLIDING SCALE (NOVOLOG) 1 VIAL SQ SCH ×4 (06:39→21:19)
[2022-05-16] MEDS: FERROUS SO4 325 MG TABLET (FP) PO SCH ×2 (08:00→16:43)
[2022-05-16 08:53] LABS: HEMATOCRIT 33.8 % (32.4-45.2); HEMOGLOBIN 11.1 GM/dL (10.7-15.3); MCH 31.9 pg (25.7-33.7); MEAN CELL VOLUME 96.8 fl (80-96); MEAN PLT VOLUME 10.2 fl (7.5-11.1); PLATELET COUNT 172 10^3/uL (134-434); RBC 3.49 M/mm3 (3.60-5.2); WHITE BLOOD COUNT 3.5 K/mm3 (4.0-10.0)
[2022-05-16 09:26] LABS: ALBUMIN 2.5 g/dl (3.4-5.0); BLOOD UREA NITROGEN 32.3 mg/dL (7-18); CALCIUM 8.5 mg/dL (8.5-10.1); MAGNESIUM 1.3 mg/dL (1.8-2.4)
[2022-05-16 09:28] LABS: CREATININE 1.5 mg/dL (0.55-1.3)
[2022-05-16 09:30] LABS: PHOSPHOROUS 2.4 mg/dL (2.5-4.9)
[2022-05-16 09:31] LABS: BILIRUBIN,TOTAL 0.3 mg/dL (0.2-1); TOT PROT 5.8 g/dl (6.4-8.2)
[2022-05-16] MEDS: ZINC SULFATE 220 MG CAPSULE (FP) PO SCH (10:28)
[2022-05-16] MEDS: predniSONE 5 MG TABLET (UD) PO SCH (10:28)
[2022-05-16] MEDS: ASPIRIN COATED 81 MG TABLET.EC PO SCH (10:28)
[2022-05-16] MEDS: PANTOPRAZOLE 40 MG TABLET PO SCH (10:28)
[2022-05-16] MEDS: ASCORBIC ACID 250 MG TABLET (FP) PO SCH (10:28)
[2022-05-16] MEDS: HEPARIN NA (PORCINE) 5,000 UNITS/ML 1ML VIAL SQ SCH ×2 (10:28→21:12)
[2022-05-16] MEDS: azaTHIOprine 50 MG TABLET PO SCH (10:28)
[2022-05-16] MEDS: guaiFENesin 600 MG TABLET.ER (FP) PO SCH ×2 (10:28→21:12)
[2022-05-16] MEDS ORDERED: MAGNESIUM SULF 50% (8.12 MEQ/2 ML-1 GM VIAL) IVPB ONE (14:55)
[2022-05-16] MEDS ORDERED: NAPH,MB-DB/K PH,MBDB POWDER PACKET PO ONE (14:56)
[2022-05-17 05:12] VITALS: RESP 18
[2022-05-17] MEDS: LEVOTHYROXINE NA 50 MCG TABLET (FP) PO SCH (06:15)
[2022-05-17] MEDS: INSULIN SLIDING SCALE (NOVOLOG) 1 VIAL SQ SCH ×2 (06:42→10:43)
[2022-05-17 07:57] LABS: HEMATOCRIT 32.1 % (32.4-45.2); HEMOGLOBIN 10.7 GM/dL (10.7-15.3); MCH 32.4 pg (25.7-33.7); MCHC 33.5 g/dl (32.0-36.0); MEAN PLT VOLUME 9.4 fl (7.5-11.1); PLATELET COUNT 199 10^3/uL (134-434); RBC 3.31 M/mm3 (3.60-5.2); WHITE BLOOD COUNT 4.6 K/mm3 (4.0-10.0)
[2022-05-17 08:25] LABS: ALBUMIN 2.6 g/dl (3.4-5.0); CALCIUM 8.7 mg/dL (8.5-10.1)
[2022-05-17 08:28] LABS: CREATININE 1.5 mg/dL (0.55-1.3)
[2022-05-17 08:30] LABS: BILIRUBIN,TOTAL 0.3 mg/dL (0.2-1); TOT PROT 5.5 g/dl (6.4-8.2)
[2022-05-17 09:02] VITALS: BP 140/73; PULSE 85; TEMP 98.6
[2022-05-17] MEDS: HEPARIN NA (PORCINE) 5,000 UNITS/ML 1ML VIAL SQ SCH (10:24)
[2022-05-17] MEDS: ASPIRIN COATED 81 MG TABLET.EC PO SCH (10:25)
[2022-05-17] MEDS: guaiFENesin 600 MG TABLET.ER (FP) PO SCH (10:25)
[2022-05-17] MEDS: PANTOPRAZOLE 40 MG TABLET PO SCH (10:25)
[2022-05-17] MEDS: azaTHIOprine 50 MG TABLET PO SCH (10:26)
[2022-05-17] MEDS: ZINC SULFATE 220 MG CAPSULE (FP) PO SCH (10:26)
[2022-05-17] MEDS: FERROUS SO4 325 MG TABLET (FP) PO SCH (10:26)
[2022-05-17] MEDS: ASCORBIC ACID 250 MG TABLET (FP) PO SCH (10:26)
[2022-05-17] MEDS: predniSONE 5 MG TABLET (UD) PO SCH (10:28)
[2022-05-17 21:27] VITALS: BMI 21.1
== END 2022-05-17 15:15 | disposition home or self-care (01) | DRG 178 ==
LOC: JER 19:02 → JERBED 20:13 → J4W 05-12 21:00
PROVIDERS: ADMIT Internal Medicine; ATTEND Internal Medicine
DX: U07.1 COVID-19 (principal); I69.354 Hemiplegia and hemiparesis following cerebral infarction affecting left non-dominant side; N17.9 Acute kidney failure, unspecified; M62.82 Rhabdomyolysis; J45.909 Unspecified asthma, uncomplicated; N18.30 Chronic kidney disease, stage 3 unspecified; I27.20 Pulmonary hypertension, unspecified; E03.9 Hypothyroidism, unspecified; E11.22 Type 2 diabetes mellitus with diabetic chronic kidney disease; I12.9 Hypertensive chronic kidney disease with stage 1 through stage 4 chronic kidney disease, or unspecified chronic kidney disease; E78.5 Hyperlipidemia, unspecified; I25.10 Atherosclerotic heart disease of native coronary artery without angina pectoris; E83.39 Other disorders of phosphorus metabolism; E83.42 Hypomagnesemia; D69.6 Thrombocytopenia, unspecified; E87.6 Hypokalemia
CPT/HCPCS: 36415; 70450-TC; 70486-TC; 71045-TC-FY; 72125-TC; 72170-TC-FY; 73030-TC-LT-FY; 80048; 80053; 82550; 82553; 82962; 83735; 84100; 84484; 85025; 85027; 86140; 90715; 93005; 93010; 93306-TC; 97116-GP; 97162-GP; 99285-25; C9803-CS; J1644; U0003; U0005

== ENCOUNTER 2022-11-29 18:52 | Observation (INO) | payer OTHER ==
[2022-11-29] MEDS ORDERED: DEXTROSE 50%-WATER - 25 GM/50 ML VIAL IVPUSH ONE (19:29)
[2022-11-29 19:41] VITALS: BMI 21.6
[2022-11-29] MEDS ORDERED: DEXTROSE 50%-WATER 25 GM/50 ML DISP.SYRIN ONE (19:44)
[2022-11-29 20:47] LABS: BASO % 0.3 % (0-2.0); EOS % 0.5 % (0-4.5); HEMATOCRIT 28.1 % (32.4-45.2); HEMOGLOBIN 9.3 GM/dL (10.7-15.3); LYMPH % 13.4 % (8-40); MCH 31.1 pg (25.7-33.7); MCHC 33.2 g/dl (32.0-36.0); MEAN CELL VOLUME 93.7 fl (80-96); MEAN PLT VOLUME 8.4 fl (7.5-11.1); MONO % 8.2 % (3.8-10.2); NEUT % 77.6 % (42.8-82.8); PLATELET COUNT 134 10^3/uL (134-434); RDW 16.2 % (11.6-15.6); WHITE BLOOD COUNT 4.4 K/mm3 (4.0-10.0)
[2022-11-29 21:50] LABS: POTASSIUM 4.3 mmol/L (3.5-5.1)
[2022-11-29 21:51] LABS: CALCIUM 8.1 mg/dL (8.5-10.1)
[2022-11-29 21:52] LABS: ALBUMIN 2.9 g/dl (3.4-5.0); BLOOD UREA NITROGEN 46.5 mg/dL (7-18)
[2022-11-29 21:55] LABS: CREATININE 1.8 mg/dL (0.55-1.3)
[2022-11-29 21:56] LABS: BILIRUBIN,TOTAL 0.8 mg/dL (0.2-1); TOT PROT 5.8 g/dl (6.4-8.2)
[2022-11-29] MEDS ORDERED: FUROSEMIDE 40 MG TABLET (FP) PO SCH (23:45)
[2022-11-30] MEDS: HEPARIN NA (PORCINE) 5,000 UNITS/ML 1ML VIAL SQ SCH ×2 (06:03→13:33)
[2022-11-30] MEDS ORDERED: LEVOTHYROXINE NA 50 MCG TABLET (FP) PO SCH (07:00)
[2022-11-30 08:55] VITALS: RESP 17
[2022-11-30] MEDS ORDERED: predniSONE 5 MG TABLET (UD) PO SCH (10:00)
[2022-11-30] MEDS ORDERED: AMBRISENTAN 10 MG PO SCH (10:00)
[2022-11-30] MEDS ORDERED: azaTHIOprine 50 MG TABLET PO SCH (10:00)
[2022-11-30] MEDS ORDERED: VALSARTAN 160 MG TABLET PO SCH (10:00)
[2022-11-30] MEDS ORDERED: PANTOPRAZOLE 40 MG TABLET PO SCH (10:00)
[2022-11-30] MEDS ORDERED: PATIENT'S OWN MEDICATION (NON-FORMULARY) (Tadalafil [Tadalafil] 20 MG Tablet) PO SCH (10:00)
[2022-11-30 10:06] LABS: POTASSIUM 4.2 mmol/L (3.5-5.1)
[2022-11-30 10:11] LABS: ALBUMIN 3.1 g/dl (3.4-5.0); CALCIUM 8.8 mg/dL (8.5-10.1)
[2022-11-30 10:12] LABS: BLOOD UREA NITROGEN 48.8 mg/dL (7-18); MAGNESIUM 1.9 mg/dL (1.8-2.4)
[2022-11-30 10:14] LABS: PHOSPHOROUS 3.5 mg/dL (2.5-4.9)
[2022-11-30 10:15] LABS: CREATININE 2.1 mg/dL (0.55-1.3)
[2022-11-30 10:16] LABS: BILIRUBIN,TOTAL 0.4 mg/dL (0.2-1); TOT PROT 6.4 g/dl (6.4-8.2)
[2022-11-30 10:47] LABS: BASO % 0.2 % (0-2.0); EOS % 0.8 % (0-4.5); HEMOGLOBIN 11.1 GM/dL (10.7-15.3); LYMPH % 35.5 % (8-40); MCH 30.8 pg (25.7-33.7); MCHC 33.5 g/dl (32.0-36.0); MEAN CELL VOLUME 91.9 fl (80-96); MONO % 7.9 % (3.8-10.2); NEUT % 55.6 % (42.8-82.8); PLATELET COUNT 189 10^3/uL (134-434); RBC 3.59 M/mm3 (3.60-5.2); RDW 15.7 % (11.6-15.6); WHITE BLOOD COUNT 5.6 K/mm3 (4.0-10.0)
[2022-11-30 15:23] VITALS: BP 116/56; PULSE 75; TEMP 97.7
[2022-11-30] MEDS ORDERED: ROSUVASTATIN CA 10 MG TABLET PO SCH (22:00)
== END 2022-11-30 15:24 | disposition home or self-care (01) ==
LOC: JER 18:52 → JERBED 20:45 → J5S 11-30 01:24
PROVIDERS: ADMIT Internal Medicine; ATTEND Internal Medicine
PROC: 3E033GC Introduction of Other Therapeutic Substance into Peripheral Vein, Percutaneous Approach (ICD-10-PCS; principal; 2022-11-29)
PROC: 3E023GC Introduction of Other Therapeutic Substance into Muscle, Percutaneous Approach (ICD-10-PCS; 2022-11-29)
DX: E11.22 Type 2 diabetes mellitus with diabetic chronic kidney disease (principal); I13.10 Hypertensive heart and chronic kidney disease without heart failure, with stage 1 through stage 4 chronic kidney disease, or unspecified chronic kidney disease; N18.30 Chronic kidney disease, stage 3 unspecified; E11.649 Type 2 diabetes mellitus with hypoglycemia without coma; M32.9 Systemic lupus erythematosus, unspecified; I11.9 Hypertensive heart disease without heart failure; I27.20 Pulmonary hypertension, unspecified; E78.5 Hyperlipidemia, unspecified; I25.10 Atherosclerotic heart disease of native coronary artery without angina pectoris; E03.9 Hypothyroidism, unspecified; Z88.8 Allergy status to other drugs, medicaments and biological substances; Z91.018 Allergy to other foods
CPT/HCPCS: 36415; 80053; 82962; 83036; 83735; 84100; 85025; 93005; 93010; 96372; 96374; 99285-25; C9803-CS; G0378; J1644; U0003; U0005

== ENCOUNTER 2024-07-29 17:36 | Inpatient (IN) | payer OTHER ==
[2024-07-29 18:54] LABS: BASO % 0.2 % (0-2.0); EOS % 0.4 % (0-4.5); HEMATOCRIT 36.1 % (32.4-45.2); HEMOGLOBIN 11.5 GM/dL (10.7-15.3); LYMPH % 16.6 % (8-40); MCH 30.6 pg (25.7-33.7); MCHC 31.9 g/dl (32.0-36.0); MEAN PLT VOLUME 9.4 fl (7.5-11.1); MONO % 4.4 % (3.8-10.2); NEUT % 78.4 % (42.8-82.8); PLATELET COUNT 161 10^3/uL (134-434); RBC 3.77 M/mm3 (3.60-5.2); RDW 16.2 % (11.6-15.6); WHITE BLOOD COUNT 7.8 K/mm3 (4.0-10.0)
[2024-07-29 19:00] LABS: VENOUS BASE EXCESS -0.8 mmol/L (-2-2); VENOUS O2 SATURATION 36.1 % (70-80); VENOUS PCO2 57.6 mmHg (38-52); VENOUS PH 7.285 (7.310-7.410)
[2024-07-29 19:01] LABS: INR 0.93 (0.83-1.09); PROTHROMBIN TIME (PATIENT) 10.5 SEC (9.7-13.0)
[2024-07-29 19:03] LABS: ACTIVATED PTT 32.1 SECONDS (25.2-36.5)
[2024-07-29 19:12] LABS: POTASSIUM 4.2 mmol/L (3.5-5.1)
[2024-07-29 19:15] LABS: CALCIUM 9.3 mg/dL (8.5-10.1)
[2024-07-29 19:16] LABS: ALBUMIN 3.9 g/dl (3.4-5.0); BLOOD UREA NITROGEN 27.7 mg/dL (7-18); MAGNESIUM 1.6 mg/dL (1.8-2.4)
[2024-07-29 19:18] LABS: CREATININE 1.5 mg/dL (0.55-1.3)
[2024-07-29 19:20] LABS: BILIRUBIN,TOTAL 0.4 mg/dL (0.2-1); TOT PROT 7.5 g/dl (6.4-8.2)
[2024-07-29 19:22] LABS: LACTIC ACID 2.1 mmol/L (0.4-2.0)
[2024-07-29] MEDS ORDERED: OSELTAMIVIR PHOSPHATE 75 MG CAPSULE ONE (19:39)
[2024-07-29] MEDS ORDERED: methylPREDNISolone NA SUCC 125 MG/2 ML VIAL ONE (19:39)
[2024-07-29] MEDS ORDERED: FUROSEMIDE 40 MG/4 ML INJECTABLE VIAL ONE (19:40)
[2024-07-29] MEDS ORDERED: AZITHROMYCIN IVPB 500 MG/250 ML BAG IVPB ONE (19:40)
[2024-07-29] MEDS ORDERED: CEFTRIAXONE 1 G/50 ML PREMIX 50 ML IVPB ONE (19:40)
[2024-07-29] MEDS: CEFTRIAXONE 1,000 MG in DEXTROSE 5%-WATER - 50 ML IVPB ONE (20:14)
[2024-07-29] MEDS: FUROSEMIDE 40 MG/4 ML INJECTABLE VIAL IVPUSH ONE (20:14)
[2024-07-29] MEDS: methylPREDNISolone NA SUCC 125 MG/2 ML VIAL IVPB ONE (20:14)
[2024-07-29] MEDS: OSELTAMIVIR PHOSPHATE 75 MG CAPSULE PO ONE (20:14)
[2024-07-29 20:43] LABS: POTASSIUM 4.1 mmol/L (3.5-5.1)
[2024-07-29 20:45] LABS: ALBUMIN 3.5 g/dl (3.4-5.0); CALCIUM 8.9 mg/dL (8.5-10.1)
[2024-07-29 20:49] LABS: CREATININE 1.4 mg/dL (0.55-1.3)
[2024-07-29 20:50] LABS: BILIRUBIN,TOTAL 0.3 mg/dL (0.2-1); TOT PROT 6.5 g/dl (6.4-8.2)
[2024-07-29] MEDS: AZITHROMYCIN IVPB 500 MG in DEXTROSE 5%-WATER - 250 ML IVPB ONE (21:05)
[2024-07-29] MEDS ORDERED: ASPIRIN 81 MG CHEWABLE TABLETS ONE (21:11)
[2024-07-29] MEDS: ASPIRIN 81 MG CHEWABLE TABLETS PO ONE (21:35)
[2024-07-29] MEDS ORDERED: MAGNESIUM SULFATE IN WATER 2 GM/50 ML IVPB IVPB ONE (21:44)
[2024-07-29 21:56] LABS: LACTIC ACID 2.2 mmol/L (0.4-2.0)
[2024-07-29] MEDS: SODIUM CHLORIDE 0.9% 500 ML INFUS.BAG IV ONE (22:00)
[2024-07-29] MEDS: MAGNESIUM SULF 50% (8.12 MEQ/2 ML-1 GM VIAL) IVPB ONE (22:00)
[2024-07-30 04:43] VITALS: BMI 21.6
[2024-07-30] MEDS ORDERED: ACETAMINOPHEN 325 MG TABLET (FP) PO PRN (05:13)
[2024-07-30] MEDS: methylPREDNISolone NA SUCC 40 MG/1 ML VIAL IVPUSH SCH ×2 (06:12→10:16)
[2024-07-30] MEDS: LEVOTHYROXINE NA 50 MCG TABLET (FP) PO SCH (06:12)
[2024-07-30] MEDS: FUROSEMIDE 40 MG/4 ML INJECTABLE VIAL IVPUSH SCH (06:12)
[2024-07-30] MEDS: INSULIN ASPART SLIDING SCALE (NOVOLOG) 1 VIAL SQ SCH (06:24)
[2024-07-30 07:42] LABS: HEMATOCRIT 36.7 % (32.4-45.2); HEMOGLOBIN 11.6 GM/dL (10.7-15.3); MCH 30.7 pg (25.7-33.7); MCHC 31.7 g/dl (32.0-36.0); MEAN CELL VOLUME 96.9 fl (80-96); MEAN PLT VOLUME 9.5 fl (7.5-11.1); PLATELET COUNT 139 10^3/uL (134-434); RBC 3.78 M/mm3 (3.60-5.2); RDW 15.8 % (11.6-15.6); WHITE BLOOD COUNT 4.2 K/mm3 (4.0-10.0)
[2024-07-30 08:07] LABS: POTASSIUM 4.4 mmol/L (3.5-5.1)
[2024-07-30 08:12] LABS: CALCIUM 9.2 mg/dL (8.5-10.1)
[2024-07-30 08:13] LABS: ALBUMIN 3.7 g/dl (3.4-5.0); BLOOD UREA NITROGEN 25.8 mg/dL (7-18)
[2024-07-30 08:17] LABS: CREATININE 1.4 mg/dL (0.55-1.3); PHOSPHOROUS 3.8 mg/dL (2.5-4.9)
[2024-07-30 08:18] LABS: BILIRUBIN,TOTAL 0.4 mg/dL (0.2-1)
[2024-07-30 08:59] LABS: ANISOCYTOSIS 0; MACROCYTOSIS 0
[2024-07-30] MEDS ORDERED: AMBRISENTAN 10 MG PO SCH (10:00)
[2024-07-30] MEDS ORDERED: predniSONE 5 MG TABLET (UD) PO SCH (10:00)
[2024-07-30] MEDS ORDERED: PATIENT'S OWN MEDICATION (NON-FORMULARY) (Tadalafil [Tadalafil] 20 MG Tablet) PO SCH (10:00)
[2024-07-30] MEDS: OSELTAMIVIR PHOSPHATE 30 MG CAPSULE PO SCH (10:13)
[2024-07-30] MEDS: ENOXAPARIN NA (PORCINE) 40 MG/0.4 ML DISP.SYRIN SQ SCH (10:15)
[2024-07-30] MEDS: ACETAMINOPHEN 325 MG TABLET (FP) PO PRN (10:16)
[2024-07-30] MEDS: PANTOPRAZOLE 40 MG TABLET PO SCH (10:17)
[2024-07-30] MEDS: azaTHIOprine 50 MG TABLET PO SCH (10:18)
[2024-07-30] MEDS: LIDOCAINE 4% PATCH TP SCH (10:20)
[2024-07-30] MEDS: VALSARTAN 160 MG TABLET PO SCH (11:18)
[2024-07-30] MEDS ORDERED: AZITHROMYCIN IVPB 250 MG in DEXTROSE 5%-WATER - 250 ML IVPB SCH (20:00)
[2024-07-30] MEDS: CEFTRIAXONE 1 G/50 ML PREMIX 50 ML IVPB SCH (20:41)
[2024-07-30] MEDS: cloNIDine HCL 0.1 MG TABLET PO SCH (22:35)
[2024-07-30] MEDS: ROSUVASTATIN CA 20 MG TABLET PO SCH (22:35)
[2024-07-30] MEDS: LIDOCAINE PATCH REMOVAL MC SCH (22:35)
[2024-07-31 08:20] LABS: BASO % 0.1 % (0-2.0); HEMATOCRIT 37.2 % (32.4-45.2); HEMOGLOBIN 12.4 GM/dL (10.7-15.3); LYMPH % 15.8 % (8-40); MCH 31.5 pg (25.7-33.7); MCHC 33.3 g/dl (32.0-36.0); MEAN CELL VOLUME 94.5 fl (80-96); MEAN PLT VOLUME 9.2 fl (7.5-11.1); MONO % 11.9 % (3.8-10.2); NEUT % 72.2 % (42.8-82.8); PLATELET COUNT 151 10^3/uL (134-434); RBC 3.94 M/mm3 (3.60-5.2); RDW 15.5 % (11.6-15.6); WHITE BLOOD COUNT 3.8 K/mm3 (4.0-10.0)
[2024-07-31 08:36] LABS: POTASSIUM 4.6 mmol/L (3.5-5.1)
[2024-07-31 08:51] LABS: ALBUMIN 3.4 g/dl (3.4-5.0); CALCIUM 8.9 mg/dL (8.5-10.1)
[2024-07-31 08:52] LABS: BLOOD UREA NITROGEN 46.3 mg/dL (7-18)
[2024-07-31 08:55] LABS: CREATININE 1.8 mg/dL (0.55-1.3); PHOSPHOROUS 4.5 mg/dL (2.5-4.9)
[2024-07-31 08:56] LABS: BILIRUBIN,TOTAL 0.2 mg/dL (0.2-1); TOT PROT 6.6 g/dl (6.4-8.2)
[2024-07-31] MEDS: methylPREDNISolone NA SUCC 40 MG/1 ML VIAL IVPUSH SCH (21:45)
[2024-08-01 08:59] LABS: BASO % 0.1 % (0-2.0); HEMATOCRIT 37.8 % (32.4-45.2); HEMOGLOBIN 12.1 GM/dL (10.7-15.3); LYMPH % 13.8 % (8-40); MCH 30.8 pg (25.7-33.7); MEAN CELL VOLUME 96.3 fl (80-96); MEAN PLT VOLUME 9.6 fl (7.5-11.1); MONO % 3.6 % (3.8-10.2); NEUT % 82.5 % (42.8-82.8); PLATELET COUNT 183 10^3/uL (134-434); RBC 3.93 M/mm3 (3.60-5.2); RDW 15.1 % (11.6-15.6); WHITE BLOOD COUNT 4.8 K/mm3 (4.0-10.0)
[2024-08-01 09:19] LABS: POTASSIUM 4.9 mmol/L (3.5-5.1)
[2024-08-01 09:24] LABS: CALCIUM 8.4 mg/dL (8.5-10.1)
[2024-08-01 09:25] LABS: BLOOD UREA NITROGEN 63.9 mg/dL (7-18); MAGNESIUM 1.9 mg/dL (1.8-2.4)
[2024-08-01 09:28] LABS: CREATININE 2.2 mg/dL (0.55-1.3); PHOSPHOROUS 4.9 mg/dL (2.5-4.9)
[2024-08-01 09:29] LABS: BILIRUBIN,TOTAL 0.3 mg/dL (0.2-1); TOT PROT 6.4 g/dl (6.4-8.2)
[2024-08-01] MEDS: BUDESONIDE/FORMETEROL FUMARATE 160/4.5 mcg INHALER IH SCH (09:41)
[2024-08-01] MEDS ORDERED: predniSONE 5 MG TABLET (UD) PO SCH (10:00)
[2024-08-01 14:21] VITALS: BP 123/66; PULSE 69; RESP 18; TEMP 97.7
== END 2024-08-01 14:45 | disposition home or self-care (01) | DRG 194 ==
LOC: JER 17:36 → JERBED 20:20 → J4W 07-30 04:07 → OBSVTOIN 07-30 08:27
PROVIDERS: ADMIT Internal Medicine; ATTEND Internal Medicine
DX: J09.X2 Influenza due to identified novel influenza A virus with other respiratory manifestations (principal); I24.89 Other forms of acute ischemic heart disease; J84.9 Interstitial pulmonary disease, unspecified; N17.9 Acute kidney failure, unspecified; I27.20 Pulmonary hypertension, unspecified; N18.30 Chronic kidney disease, stage 3 unspecified; R09.02 Hypoxemia; M34.9 Systemic sclerosis, unspecified; E03.9 Hypothyroidism, unspecified; E78.5 Hyperlipidemia, unspecified; I12.9 Hypertensive chronic kidney disease with stage 1 through stage 4 chronic kidney disease, or unspecified chronic kidney disease
CPT/HCPCS: 0241U-QW; 36415; 71045-TC-FY; 71250-TC; 80053; 82803; 82962; 83605; 83735; 83880; 84100; 84484; 85025; 85610; 85730; 87070; 87205; 87899; 93005; 93010; 97116-GP; 97161-GP; 99285-25; G0378